=== PATIENT | female | born 1985 | race Caucasian/White ===

== ENCOUNTER 2018-11-22 14:01 | Inpatient (IN) | payer OTHER ==
--- NOTE | 2018-11-22 14:21 | EDPHY ---
H & P Stated Complaint: depression, SI, voluntary Source: Patient Exam Limitations: No limitations - Personal History LMP (Females 10-55): 1-7 Days Ago Current Tetanus/Diphtheria Vaccine: No Current Tetanus Diphtheria and Acellular Pertussis (TDAP): No - Medical/Surgical History Hx Asthma: No Hx Chronic Respiratory Disease: No Hx Diabetes: No Hx Cardiac Disease: No Hx Renal Disease: No Hx Cirrhosis: No Hx Alcoholism: No Hx HIV/AIDS: No Hx Splenectomy or Spleen Trauma: No - Family History Significant Family History: No pertinent family hx - Social History Smoking Status: Light smoker Time Seen by Provider: 11/22/18 14:20 HPI/ROS: CHIEF COMPLAINT: Depression, suicidal thoughts HISTORY OF PRESENT ILLNESS: The patient presents to the ED with increasing depression and suicidal thoughts. The patient is despondent about a number of things in her life including a divorce. She has been seeing a therapist although has not seen them recently. She has been reluctant to start medications for depression and has been self medicating with alcohol. She reports that now she feels like she is at the "end of her rope" and would like medications and in-patient hospitalization. The patient is not specific regarding her suicidal plan. She does not feel as if he can contract for safety. She denies any acute medical problems. She takes no regular medications. REVIEW OF SYSTEMS: A comprehensive 10 point review of systems is otherwise negative aside from elements mentioned in the history of present illness. (Rush Mcclellan) - Physical Exam Exam: General Appearance: Alert, no distress Eyes: Pupils equal and round no pallor or injection ENT, Mouth: Mucous membranes moist Respiratory: There are no retractions, lungs are clear to auscultation Cardiovascular: Regular rate and rhythm Gastrointestinal: Abdomen is soft and nontender, no masses, bowel sounds normal Neurological: A&O, normal motor function, normal sensory exam, normal cranial nerves Skin: Warm and dry, no rashes Musculoskeletal: Neck is supple nontender Extremities: symmetrical, full range of motion Psychiatric: Tearful, depressed, endorses suicidal ideation (Rush Mcclellan) Constitutional: Initial Vital Signs Temperature (C) 36.8 C 11/22/18 14:08 Heart Rate 83 11/22/18 14:08 Respiratory Rate 16 11/22/18 14:08 Blood Pressure 125/80 H 11/22/18 14:08 O2 Sat (%) 96 03/14/19 14:08 O2 Delivery Mode Room Air Allergies/Adverse Reactions: No Known Allergies Allergy (Unverified 11/22/18 14:07) Home Medications: Medication Instructions Recorded Melatonin [Melatonin 5 mg] 5 mg PO HS PRN 11/22/18 Phenylephrine/Hypromell/Gly/Pf 1 drop EACHEYE PRN PRN 11/22/18 [Clear Eyes Pure Rlf Multi-Symp] Medical Decision Making ED Course/Re-evaluation: The patient has been placed on an M1 psychiatric hold given her suicidal thoughts and depression. Screening laboratory studies have been ordered. The patient will be medically cleared and evaluated by Psychiatry. She will be turned over to Dr. Paul at shift change pending psychiatric disposition and evaluation. (Rush Mcclellan) 1244: Patient has been accepted at [address] [place] [address] Fenton[address] Appropriate transfer will be set up. EMTALA Form filled out. (Jerald Carrillo) I took over care of this patient at 3:00 p.m.. This patient is on an M1 hold for suicidal ideation. The patient is currently awaiting behavioral health evaluation. 11:00 p.m., care turned over to Dr. Carrillo. Patient's emergency department course under my care has been uneventful. Plan for transfer to [address] [place] [address] after 7: 00 a.m.. (Susan Paul) Differential Diagnosis: Differential diagnosis considered includes suicidal ideation, depression, alcohol abuse, ingestion (Rush Mcclellan) - Data Points Laboratory Results: Laboratory Results 11/22/18 14:40 11/22/18 14:40 Medications Given: Folic Acid (Folic Acid) 1 mg PO DAILY TEMO Stop: 05/22/19 08:59 Last Admin: 11/23/18 12:20 Dose: 1 mg Gabapentin (Neurontin) 300 mg PO TID@,, TEMO Stop: 05/22/19 12:59 Last Admin: 11/23/18 17:26 Dose: 300 mg Multivitamins (Tab-A-Kb) 1 each PO DAILY TEMO Stop: 05/22/19 08:59 Last Admin: 11/23/18 12:20 Dose: 1 each Thiamine HCl (Vitamin B-1) 100 mg PO DAILY TEMO Stop: 11/25/18 09:01 Last Admin: 11/23/18 12:20 Dose: 100 mg Discontinued Medications Lorazepam (Ativan) 1 mg PO EDNOW ONE Stop: 11/22/18 23:38 Last Admin: 11/22/18 23:40 Dose: 1 mg Thiamine HCl (Vitamin B-1) 100 mg PO ONCE ONE Stop: 11/23/18 00:41 Last Admin: 11/23/18 03:13 Dose: Not Given Departure - Departure Disposition: [facility] IP Clinical Impression: Suicidal ideation, Severe major depression
[2018-11-22 14:56] LABS: PLATELET COUNT 381 10^3/uL (150-400)
[2018-11-22] MEDS ORDERED: LORazepam 1 MG TAB PO ONE (23:37)
[2018-11-23] MEDS ORDERED: PROMETHAZINE HCL 25 MG SUPPR PR PRN (00:40)
[2018-11-23] MEDS ORDERED: MAG HYDROX/AL HYDROX/SIMETH 30 ML UDCUP PO PRN (00:40)
[2018-11-23] MEDS ORDERED: chlordiazePOXIDE 25 MG CAP PO PRN (00:40)
[2018-11-23] MEDS ORDERED: MAGNESIUM HYDROXIDE 30 ML UDCUP PO PRN (00:40)
[2018-11-23] MEDS ORDERED: THIAMINE HCL 100 MG TAB (ONCE) PO ONE (00:40)
[2018-11-23] MEDS ORDERED: IBUPROFEN 200 MG TAB PO PRN (00:40)
[2018-11-23] MEDS ORDERED: NICOTINE POLACRILEX 2 MG GUM B PRN (00:40)
--- NOTE | 2018-11-23 09:11 | ASMTBHMTP ---
Master Treatment Plan Master Treatment Plan Answers: Depressed Mood with for: Suicidal Ideation Date: 11/23/2018 Diagnosis on Admission: Unspecified Depressive Disorder Expected length of stay: 3-5 Days Reason for admission: Notes: The patient is a 33 y/o female, , employed, with no prior dx hx presenting with depressive symptoms. She is living in [place], [place]. The patient self presented to [facility] ED with her intimate partner to get mh and substance abuse tx. She was placed on M1 hold by [facility] staff. The patient was read their rights @ 22:00. At the time of initial utox testing in the ed @ 14:40 the patients bal was 221. The patient stated she drinks etoh with and the amount she consumes varies. The patient reported she will drink 8 drinks per drinking occasion to intoxication. The patient stated that the first time she drank etoh was when she was 18 years old and the last time she drank was 11/22/18. She reported that has been drinking etoh "daily for the past five years." The patient reported relationship distress due to her etoh use including that her behavior has been "irratic and horrible." She reported that yesterday was her intimate partner, Gilberto's, birthday. She avoided him by drinking throughout the day. She did not come home at night. When she returned today they discussed intervention and treatment prior to presenting at the [facility] ED. The patient endorsed anxious and depressive symptoms including suicidal ideation. She denied intent or plan, although she later stated, "I'll drink myself ." The patient requested psychiatric care. Gilberto expressed concern that patient is at times delusional. He stated, "She believes things happen that didn't happen or didn't happen that did." Per ED provider report, "The patient presents to the ED with increasing depression and suicidal thoughts. The patient is despondent about a number of things in her life including a divorce. She has been seeing a therapist although has not seen them recently. She has been reluctant to start medications for depression and has been self medicating with alcohol. She reports that now she feels like she is at the "end of her rope" and would like medications and in-patient hospitalization. The patient is not specific regarding her suicidal plan. She does not feel as if he can contract for safety. She denies any acute medical problems. She takes no regular medications." Patient's stated presenting problems: Notes: Pt. reports suffering form "major depression" and "bad anxiety". Pt. reports having "unfortunate thoughts". Pt. reports needing to "take a time out". Patient's goals for treatment: Notes: Pt. reports her goal to "find a care provider to help with a medication plan". Pt. reports willing to sign up for Medicaid. Patient's strengths: Notes: Pt. reports "good multi-hamzah, people person, and get along with most anyone". Identify supports outside of hospital: Notes: Pt. reports her boyfriend, mom and dad. Discharge criteria: Notes: Suicidal ideation will resolve and patient will have a plan to safely manage recurrent suicidal ideation. Initial disposition plan/considerations: Notes: Pt. reports planing to return home and possibly take a few days off from work. Master Treatment Plan Required Signatures Psychiatrist signature: Answers: Psychiatrist: RN on-shift signature: Answers: RN: Patient signature: Answers: Patient: Date Signed: 11/23/2018 09:10 AM Electronically Signed By:Li Garcia
[2018-11-23] MEDS: THIAMINE HCL 100 MG TAB (DAILY X 3) PO SCH (12:20)
[2018-11-23] MEDS: FOLIC ACID 1 MG TAB PO SCH (12:20)
[2018-11-23] MEDS: MULTIVITAMINS 1 EACH TAB PO SCH (12:20)
[2018-11-23] MEDS: GABAPENTIN 300 MG CAP PO SCH ×2 (12:21→17:26)
--- NOTE | 2018-11-23 14:13 | ASMTCMCOM ---
CM Note CM Note Notes: CC met with pt. to completed MTP. Pt. reports having never taken medications in the past, but is wiling to try medications if needed. Pt. reports not having insurance and being willing to sign up for Medicaid. Pt. report seeing Leila Vila in [place], adding she hasn't seen Leila "in a few months". Pt. reports living with her boyfriend. Pt. reports drinking alcohol "almost everyday". Pt. reports drinking is her "coping mechanism of choice". Pt. reports feeling her drinking is a problem. 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 CC and Pt discussed a few ideas for harm reduction. Pt. denied all other substance use, including THC. Pt. reports this being her first hospitalization for mental health reasons. Pt. presents as alert, calm, friendly, good eye contact, polite and cooperative. Staff report pt. sleeping 4 hours and being medication compliant. Pt. signed FERNY for therapist and [facility] FERNY. Pt. signed form for Medicaid. Pt's follow up appointments currently are: Leila Tatees [facility], [place] [address] Next Appointment - Tuesday November 27, 2018 (11/27/18) at 10:00am [facility] [address], [address] [place] [address] Intake Appointment - [facility] has a financial assistance program to help if you are not able to secure Medicaid [facility] - Walkin Times This is for the initial 30 minute appt to do paperwork and Ct should bring ID, insurance card, etc. Its also helpful to have them bring their hospital d/c paperwork. These hours are by location as follows: [place] office: [address] [place] [address] Mon, Wed, and Fri 8:30am-2pm. [place] office: [address], [place] [address] Mon. and Wed., 9 am-2 pm [place] office: [address] [facility], 2nd floor (adults), [place] [address] Mon, Wed., and Fri., 9 am-2 pm Date Signed: 11/23/2018 02:12 PM Electronically Signed By:Li Garcia
--- NOTE | 2018-11-23 14:50 | BCON ---
[f rep ] BEHAVIORAL HEALTH CONSULTATION INTERNAL MEDICINE CONSULTATION DATE OF CONSULTATION: 11/23/2018 REFERRING PHYSICIAN: Teresa Fenton MD REASON FOR REFERRAL: Medical clearance for inpatient behavioral health stay. HISTORY OF PRESENT ILLNESS: This patient came to the emergency department yesterday with her significant other, complaining of anxiety and depression and feeling that she could not stay safe. She was also intoxicated on alcohol at the time. She was evaluated by the mental health team and admitted for further psychiatric care. She currently is without any acute complaints. PAST MEDICAL HISTORY: She denies any history of medical illnesses or surgeries. MEDICATIONS: She was taking no medications. SOCIAL HISTORY: She is an occasional smoker. 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 She has a heavy alcohol binge use. FAMILY HISTORY: She reports her father has complications of Agent Stark exposure and her mother is healthy. REVIEW OF SYSTEMS: She is not feeling any symptoms of alcohol withdrawal and denies sweats or shakes. She has no symptoms referable to the thyroid including no weight loss, no hyper-defecation, no tremor. Otherwise, a 10- point review of systems is negative. PHYSICAL EXAM: VITAL SIGNS: Blood pressure is 142/67 and since she presented in the emergency department, it has varied from 115-142 systolic and from 66-80 diastolic. Blood pressure today at noon is the highest it has been. Heart rate is 65. Respiratory rate is 12. Oxygen saturation is 99% on room air. Temperature is 36.5 degrees centigrade. Her weight is 63.5 kg for a body mass index of 20.7. GENERAL: This is a well-nourished, well-developed woman dressed in street clothes, cooperative, in no acute distress. HEENT: Extraocular movements are intact. Pupils are equal, round, reactive to light. Mucous membranes are moist. Dentition is in good condition. She has an uncrowded airway, Mallampati class 1. NECK: Supple and there is no thyromegaly and no thyroid nodules. LUNGS: Clear to auscultation bilaterally. HEART: There is a regular rate and rhythm with no murmurs, rubs, or gallops. LUNGS: Clear to auscultation bilaterally. ABDOMEN: Benign. EXTREMITIES: There is no cyanosis, clubbing, or edema. NEUROLOGIC: She is alert and oriented x3. Cranial nerves 2-12 are grossly intact. There is no focal weakness. Sensation is intact to light touch and gait is within normal limits. LABORATORY STUDIES: From yesterday, CBC showed a mild elevation of white blood cells of 11.02. There was no left shift and otherwise CBC was unremarkable. Serum chemistry revealed an anion gap of 17, which was likely due to alcohol intoxication and was otherwise unremarkable. Glucose was slightly high at 119. Liver function tests were normal but for a slightly high total protein at 8.3. Lipid panel revealed elevated triglycerides at 320 and an elevated cholesterol at 277. LDL was slightly high at 104 and HDL was well above normal at 109. TSH was slightly suppressed at 0.372. Beta hCG was negative for . Serum toxicology showed intoxication with ethyl alcohol at 221 mg/ dL. Urine drug screen was negative for any substances of abuse. ASSESSMENT/RECOMMENDATIONS: 1. Mental health issues pending further evaluation and management per Psychiatry and the mental health team. 2. Alcohol abuse. This accounts for her anion gap on her basic metabolic profile. She is not currently showing any signs or symptoms of alcohol withdrawal, other than an elevated blood pressure, and she has appropriate medications currently prescribed to treat any alcohol withdrawal. 3. Suppressed TSH with no signs or symptoms of hyperthyroidism. This is likely an artifact of her current life stress. Advise repeat TSH in 4-6 weeks. 4. Hypertriglyceridemia. May be related to alcohol ingestion. I see no medical contraindications to this patient's continued stay on the inpatient behavioral health unit or to any psychiatric medications or procedures. Thank you very much for including me in the care of this patient and please do not hesitate to contact me or the hospitalist service should there be need for further medical evaluation. /[id number]/MODL MTDD
--- NOTE | 2018-11-23 16:45 | BAPA ---
[f rep st] ADMISSION PSYCHIATRIC ASSESSMENT DATE OF SERVICE: 11/23/2018 CHIEF COMPLAINT: "I need to stop drinking and get treatment for my depression and anxiety." HISTORY OF PRESENT ILLNESS: The patient is a 33-year-old female with a history of regular alcohol use and symptoms of anxiety and depression. She presented to the emergency department with h er partner due to worsening mood and thoughts of suicide. She states that she feels like her drinkin g has gotten out of control and she is afraid that she will "drink myself to ." She states that the approximate inciting factor was she had a disagreement with her boyfriend with whom she lives an d instead of being present for his birthday, she went out and drank. She then did not come home phu use she wanted to avoid conflict and felt very guilty about this. The next day when she did come mark e, the boyfriend discussed with her entering into treatment to which she agreed and they came to the emergency department. The patient states that her mood has been "erratic and horrible." She has been predominantly depress ed and anxious for several months. She describes "debilitating anxiety" that "comes in waves." She states that this will start with tingling in her hands and shaking and then feeling short of breath a nd having panic-like symptoms. She states that this is "exhausting" and will often leave her to isol ate in her room or just stay in bed. She states that when she does this, "it makes me feel worthless and depressed." She describes overall being "at my wits end." When asked about her overall functioning, she states that she generally feels sad and anxious. She r eports poor energy and motivation, trouble concentrating, and lack of interest in any of her usual ac tivities. She states that she has not done any of the normal things that she would do for herself in cluding socializing or recreational activities or exercise. She has been thinking of suicide and sta mami that she likely would "drink myself to " but has had other thoughts of actually harming or k illing herself. She denies a plan currently. One of her stressors is ongoing feelings of guilt, shame and remorse for divorce from her first husba nd. She states that they were together for 5 years and for 2 years and that she believes keren t he broke up because of her depression. She feels guilty that if she would have sought treatment th at this may not have occurred. She does state, however, that she believes she is better off not in t he relationship in that her ex- was an interventional radiology technologist who "spent his whole life in the gym." The patient states that she does see a therapist, but has not in several months and she feels like e should re-enter that. She also states that she is drinking too much. She describes drinking on a daily basis, both before and during work, as she works as a lan specialist. She feels out of control of er drinking in that she is not able to stop. She states that she is interested in re-examining -[facility]. She states that her significant other is supportive of this. She states overall that " I am at my wits end." PAST PSYCHIATRIC HISTORY: Patient has no history of previous suicide attempts or hospitalizations. She has taken no previous psychotropic medications. She was seeing a therapist until approximately 2 months ago when she stopped. ALLERGIES: No known medical allergies. CURRENT MEDICATIONS: None. PAST MEDICAL HISTORY: Significant for dysmenorrhea, possible PMS. SOCIAL HISTORY: The patient was born and raised in [place]. Her parents were when she was younger, though she states she has a good relationship with both of them. Her father lives in [facility] and her mother lives in [place]. She states that they are not necessarily supportive of her sobr iety as they are both regular drinkers themselves. She states she told her mother she was going to [facility] to rehab and her mother attempted to dissuade her saying that she did not have a problem. 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 She stat es she currently has a good job as a lan specialist and does not want to jeopardize this. She reports wor bossman with her current significant other. She denies any other acute stresses at this time. FAMILY HISTORY: Significant for alcohol use in her mother and father. ADMISSION LABORATORY: CBC shows a white count up at 11.02. Serum chemistries show no significant ab normalities. Cholesterol up at 277, triglycerides are up at 320. TSH is low at 0.372. Beta hCG is negative. Urine drug screen is negative for all substances. Alcohol on admission was 221. MENTAL STATUS EXAMINATION: Reveals a healthy-appearing female. She is casually and approp riately dressed, pleasant, cooperative, and interactive. Her affect is restricted, dysphoric, tearfu l at times, especially when discussing her divorce. Her mood is described as "really depressed." Th ought process is linear and goal directed. Her thought content reveals no evidence of psychosis. Sh mukul is alert and oriented to person, place, time, and situation. Her sensorium is clear. Her intellec t appears to be at least average as evidenced by her educational and occupational histories, fund of knowledge, and vocabulary. She continues to endorse thoughts of suicide with no specific plan or int ent at this time. Her insight and judgment appear to be good. IMPRESSION: 1. Unspecified depressive disorder. 2. Alcohol use disorder, severe. 3. Relationship problems. 4. Marginal supports. The patient is a very pleasant 33-year-old female with a history of alcohol dependence and depression. It is unclear the exact origin of the depression as it has risen in course of her chroni c alcohol abuse. She has describes a litany of neurovegetative dysfunction and increasing suicidalit y, however. I discussed with her the potential use of antidepressants, which she states she has been against over time but is willing to consider that at this time. I also discussed with her the use o f gabapentin to aid in short-term sobriety and with her chronic anxiety and she agrees to start with that first. She has no history of major alcohol withdrawal, though we will continue the CIWA until a t least tomorrow. PLAN: 1. Admit to the behavior health services inpatient unit on hold. 2. We will begin gabapentin 300 mg 3 times daily to help with short-term sobriety and anxiety. The risks, benefits, and alternatives of this were discussed with her at length. 3. We will engage in individual, group, and milieu psychotherapies and help her plot a course toward recovery from her depression as well as sobriety. We will provide psychoeducation on both topics an d attempt to get her an AA book if possible. 4. We will begin active discharge planning today in order to hopefully guide her back toward psychot herapy, medication management and sobriety. 5. Estimated length of stay is 3 to 5 days. /[id number]/MODL
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
--- NOTE | 2018-11-23 18:56 | ASMTTCLDSP ---
TLC Discharge Disposition Disposition: Answers: Admit Discharge Concerns/Recommendations: Notes: In consultation with [facility] ED physician, Teresa Fenton MD and [facility] on-call psychiatrist, Susan Paul MD, both concurred that pt appears to meet 27-65 criteria requiring psychiatric hospitalization as the patient appears to be an imminent risk of harm to self due to a mental illness condition. The patient was given the 3[facility] prohibited belongings list while in the ED. Was patient given the Answers: Yes Inpatient Behavioral Health Prohibited Belongings List while in the ED? For inpatient Teresa Fenton MD admission, the following psychiatrist agreed to accept patient for admission to Behavioral Health ([facility]): Type of Hold: Answers: Involuntary Transportation Hold Hold initiated by: Answers: ED Physician Date Signed: 11/23/2018 06:55 PM Electronically Signed By:Annamarie Sheehan
[2018-11-24] MEDS: MULTIVITAMINS 1 EACH TAB PO SCH (08:29)
[2018-11-24] MEDS: FOLIC ACID 1 MG TAB PO SCH (08:29)
[2018-11-24] MEDS: GABAPENTIN 300 MG CAP PO SCH ×3 (08:29→17:25)
[2018-11-24] MEDS: THIAMINE HCL 100 MG TAB (DAILY X 3) PO SCH (08:29)
--- NOTE | 2018-11-24 15:12 | ASMTCMCOM ---
CM Note CM Note Notes: Pt. reports "doing okay". Pt. stated she slept "pretty good. Funky dreams". Pt. reports getting enough to eat and attending groups. Pt. stated her medications "made me little sleepy", adding her "anxiety really subsided". Pt. reports completing her safety plan and relapse prevention plan. Pt. reports no issues while on the unit. Pt. denied SI, HI, AVH and paranoia. Pt. reports "passing thoughts, flashes, imagery", adding no plan, more wanting "life to be easier". Pt. presents as alert, calm, friendly, groomed, good eye contact, and cooperative. Staff report pt. sleeping 7.5 hours and being medication compliant. CC to reach out to [facility] on Monday to secure pt's follow up appointment with a prescriber. Date Signed: 11/24/2018 03:11 PM Electronically Signed By:Li Garcia
--- NOTE | 2018-11-24 16:21 | SOAPPROG ---
SOAP Progress Note Assessment/Plan: Assessment: 33 yo woman presents to the ED with increasing depression and suicidal thoughts. The patient is despondent about a number of things in her life including a divorce. She has been reluctant to start medications for depression and has been self medicating with alcohol. She reports that now she feels like she is at the "end of her rope" and would like medications and in- patient hospitalization. WEEKEND PLAN: 11/24/18 16:16 1. Patient continues to deny any alcohol-related withdrawal sxs. Her CIWA scores have been 0. 2. Patient denies any SE's from new medication, Gabapentin. 3. Patient prefers to wait to start antidepressant therapy until she sees her new outpatient provider. 4. gave patient referrals to 12 step support groups, AA and [facility] [facility]. 5. [facility] expires tomorrow. Patient says she would like to stay until Monday so f/ u appts can be made for her. Subjective: Patient denies any w/d sxs. She denies any SE's or physical complaints from Gabapentin. She says she doesn't want to start antidepressant while she's in hospital. She will wait and discuss with her outpatient provider. She did agree to attend AA or [facility] support group and will f/u with [facility] for substance abuse treatment. She admits alcohol was her "main coping" skill and knows that was not a good strategy to deal with her depression. She denies any SI/HI. Objective: Vital Signs Temp Pulse Resp BP Pulse Ox 36.7 C 60 12 120/63 99 11/24/18 04:00 11/24/18 14:54 11/24/18 14:54 11/24/18 14:54 11/24/18 14:54 MSE: Affect: Brighter Mood: "Good" TP: Linear, goal-directed TC: Denies any SI/HI Insight/Judgment: Improving - Time Spent With Patient Time Spent With Patient: 15" - Pending Discharge Pending Discharge Within 24 Hours: No Pending Discharge Within 48 Hours: No ICD10 Worksheet Patient Problems: Problems Problem Status Onset Severe major depression Acute Suicidal ideation Acute
[2018-11-24] MEDS: PROMETHAZINE HCL 25 MG TAB PO PRN (23:25)
[2018-11-25] MEDS: FOLIC ACID 1 MG TAB PO SCH (08:17)
[2018-11-25] MEDS: GABAPENTIN 300 MG CAP PO SCH ×3 (08:17→18:07)
[2018-11-25] MEDS: THIAMINE HCL 100 MG TAB (DAILY X 3) PO SCH (08:17)
[2018-11-25] MEDS: MULTIVITAMINS 1 EACH TAB PO SCH (08:17)
[2018-11-25] MEDS: PROMETHAZINE HCL 25 MG TAB PO PRN ×2 (12:04→19:04)
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
--- NOTE | 2018-11-25 17:08 | SOAPPROG ---
SOAP Progress Note Assessment/Plan: Assessment: 33 yo woman presents to the ED with increasing depression and suicidal thoughts. The patient is despondent about a number of things in her life including a divorce. She has been reluctant to start medications for depression and has been self medicating with alcohol. She reports that now she feels like she is at the "end of her rope" and would like medications and in- patient hospitalization. WEEKEND PLAN: 11/24/18 16:16 1. Patient continues to deny any alcohol-related withdrawal sxs. Her CIWA scores have been 0. 2. Patient denies any SE's from new medication, Gabapentin. 3. Patient prefers to wait to start antidepressant therapy until she sees her new outpatient provider. 4. CC gave patient referrals to 12 step support groups, AA and [facility]. 5. [facility] expires tomorrow. Patient says she would like to stay until Monday so f/ u appts can be made for her. 11/25/18 17:04 1. Patient denies any w/d sxs. Will d/c CIWA protocol. 2. Patient c/o "a little" nausea this AM, but denied any physical complaints when MD spoke with her. 3. Patient stated she would remain in hospital voluntarily until tomorrow so staff could arrange her follow up appts. She has an appointment with her therapist on Monday, but needs a prescriber. CC has made a referral to [facility]. 4. Change legal status to voluntary. Subjective: Patient says, "I had questions about my outpatient appointments, but Li answered them." She told staff she felt "a little sad" this AM, but when MD spoke to her she reported feeling "better." She is optimistic and hopeful about getting outpatient services through [facility]. She agrees to seek treatment for her alcohol abuse. She denies any SI/HI. Objective: Vital Signs Temp Pulse Resp BP Pulse Ox 36.9 C 61 14 108/64 16 L 11/25/18 17:00 11/25/18 17:00 11/25/18 16:00 11/25/18 17:00 11/25/18 17:00 MSE: Affect: Euthymic Mood: "Better" TP: Linear, goal-directed TC: Denies any SI/HI, no paranoid delusions Insight/Judgment: Improved - Time Spent With Patient Time Spent With Patient: 20" - Pending Discharge Pending Discharge Within 24 Hours: Yes Pending Discharge Within 48 Hours: No Pending Discharge Date: 11/26/18 (Likely to d/c on Monday) Pending Discharge Time: 11:00 ICD10 Worksheet Patient Problems: Problems Problem Status Onset Severe major depression Acute Suicidal ideation Acute
[2018-11-26 07:09] VITALS: BP 116/57
[2018-11-26] MEDS: MULTIVITAMINS 1 EACH TAB PO SCH (08:20)
[2018-11-26] MEDS: GABAPENTIN 300 MG CAP PO SCH (08:21)
[2018-11-26] MEDS: FOLIC ACID 1 MG TAB PO SCH (08:21)
[2018-11-26] MEDS: PROMETHAZINE HCL 25 MG TAB PO PRN (08:28)
--- NOTE | 2018-11-26 11:04 | ASMTBHDC ---
Notes Note: Notes: CC was able to confirm client's follow up apts: Follow up with: Leila Vila [facility]PC, [place] [address] Next Appointment - Tuesday November 27, 2018 (11/27/18) at 10:00am [facility] [address] [place] [address] Intake Apt: MondayNovember 28 (11/28/18) at 2:30pm with Linda (on the 2nd floor at the address above). [facility] has a financial assistance program to help if you are not able to secure Medicaid Additional Resources [facility] [email or web address] [place] [facility] Meetings [employer]/meetings - provides a list of meetings available in [place] and the surrounding areas Date Signed: 11/26/2018 11:02 AM Electronically Signed By:Luis Ortiz
--- NOTE | 2018-11-26 12:25 | ASMTBHDC ---
Notes Note: Notes: The patient participated in clinical treatment team rounds. She was engaged and appropriate. The patient discussed her discharge plan including relapse prevention and safety. She intends to follow up with sobriety support ([facility]), [facility] ([facility]), continue private therapy, and change positions with her current employer. Date Signed: 11/26/2018 12:23 PM Electronically Signed By:Annamarie Sheehan
== END 2018-11-26 11:38 | disposition home or self-care (01) | DRG 881 ==
LOC: BBEH 11-23 02:03
PROVIDERS: ADMIT Psychiatry & Neurology Behavioral Neurology & Neuropsychiatry; ATTEND Psychiatry & Neurology Behavioral Neurology & Neuropsychiatry
DX: F32.9 Major depressive disorder, single episode, unspecified (principal); R45.851 Suicidal ideations; F10.10 Alcohol abuse, uncomplicated; E78.1 Pure hyperglyceridemia
CPT/HCPCS: 80305; G0480